=== PATIENT | male | born 1975 | race Caucasian/White ===

== ENCOUNTER 2025-07-07 09:12 | Emergency (ER) | payer MEDICAID ==
[~2025-07-07] VITALS: Ht 172.7 cm; Wt 81.3 kg
[2025-07-07 09:45] VITALS: BP 151/84; PULSE 73; RESP 17; O2SAT 98
--- NOTE | 2025-07-07 10:38 | Physician Documentation ---
History of Present Illness ~ Chief Complaint: Medical Clearance Stated Complaint: EXAMINATION Time Seen by MD: 09:58 Source: patient Mode of Arrival: POV Exam Limitations: no limitations HPI 49-year-old male who is here for clearance to get into [facility] [employer] [facility] program. He states he just keeps making poor choices in life and wants to get into a program to help him figure out why he keeps making these choices in the help him stay on track. He states I am really healthy and I walk a lot every day. He denies any concerns. No chest pain, shortness of breath, abdominal pain, nausea, vomiting, skin infections, hallucinations or delirium. No suicidal or homicidal ideations. Medication Reconciliation Allergies: Coded Allergies: No Known Allergies (Unverified , 07/07/25) Past Medical History Past Medical History: No Pertinent History Past Surgical History: noncontributory Smoking Status: Former smoker Alcohol Use: Sober Drug Use: marijuana, heroin Lives with: Alone Occupation: employed Review of Systems All Other Systems at this time: Reviewed and Negative Physical Exam Vital Signs: Temperature: 97.8, Source: Oral, Heart Rate: 73, Respiratory Rate: 17, BP: 151/84, Pulse Oximetry: 98, Weight: 81.300 Physical Exam GENERAL: Alert, no acute distress. HEENT: NCAT, EOMI, PERRL, normal oropharynx, moist oral mucosa. NECK: Supple, trachea midline. CARDIAC: Regular rate and rhythm, no murmurs, rubs, or gallops. PV: Equal distal pulses. No lower extremity edema, cap refill less than 2 seconds. RESPIRATORY: Equal breath sounds, clear to auscultation bilaterally, no respiratory distress. MUSCULOSKELETAL: Normal range of motion, nontender, no swelling. Normal gait. NEUROLOGICAL: Awake, alert, and oriented x 3. SKIN: Warm/dry, no pallor, no rash. PSYCH: Alert and appropriate. Affect congruent with mood. Speech is clear. Good eye contact. Progress Results/Orders Results/Orders Vital Signs 07/07/25 09:45 Temp 97.8 Pulse 73 Resp 17 B/P (MAP) 151/84 Pulse Ox 98 Medical Decision Making Additional information obtaine: N/A Findings n/a Differential Dx:Considerations: Include: Intoxication-Alcohol, Intoxication- Other drug, Personality disorder, Substance abuse disorder, Acute delirium, Closed head injury, Cervical spine injury, Skull fracture, Fracture(s), Abrasion, Contusion, Foreign body, Hematoma, Laceration, Alcohol withdrawl syndrom, Encephalopathy, Hepatitis, Medically stable, Other Departure Time of Disposition: 10:35 Disposition: 01 HOME / SELF CARE / HOMELESS Impression: Primary Impression: History of alcohol abuse Additional Impression: History of drug abuse Condition: Stable Discharge Instructions: Medical Screening Exam Additional Instructions: medically cleared for [facility] Referrals: NO PRIMARY CARE PROVIDER (PCP) Education Educated: Patient Educated regarding: diagnosis, treatment, need for follow up Signature Scribe Signature: x Attestation: TAVIA Rose Jul 07, 2025 10:38
[2025-07-07 10:47] VITALS: TEMP 97.8
== END 2025-07-07 10:48 | disposition home or self-care (01) ==
LOC: ER 09:15
DX: Z00.8 Encounter for other general examination (principal); F12.90 Cannabis use, unspecified, uncomplicated; Z87.891 Personal history of nicotine dependence
CPT/HCPCS: 99282